=== PATIENT | female | born 1955 | race Caucasian/White ===

== ENCOUNTER → 2018-02-14 | Day surgery (SDC) | payer MEDICAID ==
[~2018-02-14] MED LIST: Lactated Ringers 1,000 ML IV SCH; Propofol 200 MG/20 ML SDV IV ONE
[2018-02-14 11:49] VITALS: BP 121/74
--- NOTE | 2018-02-14 15:06 | OR ---
DATE OF OPERATION: 02/14/2018 PREOPERATIVE DIAGNOSIS: HISTORY OF TUBULOVILLOUS ADENOMA REMOVAL. POSTOPERATIVE DIAGNOSIS: HISTORY OF TUBULOVILLOUS ADENOMA REMOVAL. SURGEON: Yury Myers MD PROCEDURE: FULL-LENGTH COLONOSCOPY WITH SNARE POLYPECTOMY X1. ANESTHESIA: [employer]ICIAN due to elevated BMI. COMPLICATIONS: None. SPECIMEN: Villous adenoma, rectal vault, less than a centimeter. FINDINGS: 1. Full-length colonoscopy. 2. [id number] sigmoid diverticulosis. 3. Small, less than a centimeter villous lesion, rectosigmoid junction. RECOMMENDATIONS: Followup colonoscopy in 3 years. INDICATIONS: The patient 1 year ago had a large 2 or 3 cm tubulovillous lesion removed from her rectal vault. Dr. Ceja had recommended 1 year followup. PROCEDURE: THE PATIENT WAS PREPPED AND DRAPED, PLACED IN THE LEFT LATERAL DECUBITUS POSITION. A LUBRICATED OLYMPUS COLONOSCOPE WAS INSERTED AND ADVANCED EASILY TO THE CECUM. DIRECT VISUALIZATION OF THE ILEOCECAL VALVE AND APPENDICEAL ORIFICE WAS ACCOMPLISHED. BOWEL PREP WAS ADEQUATE. UPON WITHDRAWAL OF THE SCOPE, THE CECUM AND ASCENDING COLON WERE COMPLETELY BENIGN. NO LESIONS THROUGHOUT THE TRANSVERSE OR DESCENDING AREAS. THE SIGMOID COLON HAD MILD-TO- MODERATE DIVERTICULAR DISEASE WITHOUT ANY INFLAMMATORY CHANGES. NO OTHER LESIONS WERE SEEN. AT AROUND 20 CM NEAR THE DISTAL RECTOSIGMOID JUNCTION, THE PATIENT HAD A SMALL VILLOUS ADENOMA, LESS THAN A CENTIMETER, WAS REMOVED WITH A SNARE, AND SUCTIONED IN TO POLYP TRAP #1 WITHOUT DIFFICULTY. BETWEEN 10 AND 15 CM, THE ENTIRE RECTAL VAULT WAS THOROUGHLY EVALUATED FOR ANY SIGNS OF RECURRENCE OF HER PRIOR LESION; THERE WERE NO SIGNS OF THAT. RETROFLEXION SHOWED NO PERIANAL LESIONS. AIR WAS SUCTIONED, SCOPE REMOVED WITHOUT COMPLICATION. ANGELIA/ROSANNA /[id number]
== END ==
LOC: CC.SDS 10:10
PROVIDERS: ATTEND Family Medicine
DX: D12.7 Benign neoplasm of rectosigmoid junction (principal); K57.30 Diverticulosis of large intestine without perforation or abscess without bleeding; I10 Essential (primary) hypertension; E78.5 Hyperlipidemia, unspecified; M06.9 Rheumatoid arthritis, unspecified; E66.01 Morbid (severe) obesity due to excess calories; Z68.42 Body mass index [BMI] 45.0-49.9, adult; M81.0 Age-related osteoporosis without current pathological fracture; G89.29 Other chronic pain; Z79.899 Other long term (current) drug therapy; Z98.84 Bariatric surgery status; Z95.1 Presence of aortocoronary bypass graft; Z86.010 Personal history of colon polyps; Z98.890 Other specified postprocedural states
CPT/HCPCS: J2704; J7120